=== PATIENT | female | born 1970 | race Caucasian/White ===

== ENCOUNTER 2020-01-19 12:37 | Emergency (ER) | payer BC, SELFPAY ==
[2020-01-19 12:52] VITALS: BP 151/94; PULSE 84; RESP 18; TEMP 36.6; O2SAT 98
--- NOTE | 2020-01-19 12:53 | ED.FEMALEGU ---
HPI - Female Genitourinary General Chief complaint: Urogenital-Female Stated complaint: uti Time Seen by Provider: 01/19/20 12:54 Source: patient Mode of arrival: ambulatory Limitations: no limitations History of Present Illness HPI Narrative: Kemi Rose is a 49 yo female and has urgency, dysuria for 2 days. No N/V, no fever, no back pain Related Data Allergies Allergy/AdvReac Type Severity Reaction Status Date / Time erythromycin base Allergy Mild RASH Verified 01/19/20 12:48 amoxicillin Allergy Unknown Unknown Verified 01/19/20 12:48 ampicillin Allergy Unknown Unknown Verified 01/19/20 12:48 cefuroxime Allergy Unknown Unknown Verified 01/19/20 12:48 cephalexin Allergy Unknown Unknown Verified 01/19/20 12:48 ciprofloxacin Allergy Unknown Unknown Verified 01/19/20 12:48 levonorgestrel-ethinyl Allergy Unknown RASH Verified 01/19/20 12:48 estradiol Penicillins Allergy Unknown Unknown Verified 01/19/20 12:48 procaine Allergy Unknown Unknown Verified 01/19/20 12:48 Sulfa (Sulfonamide Allergy Unknown Unknown Verified 01/19/20 12:48 Antibiotics) Review of Systems Review of Systems: Narrative: CONSTITUTIONAL: Denies fever, chills, sweats. EYES: Denies visual changes, redness, discharge. ENT: Denies rhinorrhea, congestion, sore throat, otalgia. CARDIOVASCULAR: Denies chest pain, palpitations, edema. RESPIRATORY: Denies dyspnea, wheezing, cough GASTROINTESTINAL: Denies abdominal pain, nausea, vomiting, diarrhea. GENITOURINARY: Has dysuria, hematuria, abnormal discharge SKIN: Denies rash or itching. NEUROLOGIC: Denies numbness, or focal weakness. PSYCHIATRIC: Denies anxiety or depression. [facility] Family History Family History (Updated 01/19/20 @ 13:04 by Zoë Baldwin CNP) Mother Family history of malignant neoplasm of cervix Hypertension Acute myocardial infarction Family history of malignant neoplasm of ovary Grandparent Diabetes mellitus Sibling Patient's brother is in good health Acute myocardial infarction Family history of liver disease Other AAA (abdominal aortic aneurysm) Social History Social History Smoking status: Former smoker Smoking end date: 07/20/96 Alcohol intake: current Comments At time of signature, I agree with nursing past medical, surgical, social and family history. There is no relevant family history pertinent to the presenting complaint. Blood pressure is elevated at this visit, recommend follow-up with PCP Exam Narrative: Exam Narrative: GENERAL: This is a well-nourished, well-developed patient, in mild distress. HEAD: normocephalic, atraumatic. EYES: Sclera clear/white. Vision is grossly intact. EARS: External ears normal. Hearing grossly intact. NOSE: External nose normal without nasal discharge, nares without redness, no rhinorrhea. THROAT: Mucous membranes moist, NECK: Neck supple, CARDIOVASCULAR: Regular rate and rhythm without murmurs, gallops, or rubs. RESPIRATORY: Clear to auscultation. Breath sounds equal bilaterally. No wheezes, rales, or rhonchi. GASTROINTESTINAL: Abdomen soft, SKIN: warm, intact with no suspicious lesions or rash, good texture and turgor. NEURO: awake, alert, and oriented to person, place and time. There were no obvious focal neurologic abnormalities. Steady gait EXTREMITIES: Normal range of motion. BACK: Nontender without deformity Course Course Emergency Course: Urine dip positive for both leukocytes and nitrites, blood-due to patient allergy started on Macrobid Patient given instructions to complete antibiotic Vital Signs Vital signs: Vital Signs Temperature 97.8 F 01/19/20 12:52 Pulse Rate 84 01/19/20 12:52 Respiratory Rate 18 01/19/20 12:52 Blood Pressure 151/94 H 01/19/20 12:52 Pulse Oximetry 98 01/19/20 12:52 Temperature 97.8 F 01/19/20 12:52 Pulse Rate 84 01/19/20 12:52 Respiratory Rate 18 01/19/20 12:52 Blood Pressure 1
--- NOTE | 2020-01-29 19:27 | PC.NURSE ---
Pt. called express care expressing concerns about developing hives today while on Macrobid. Pt. reports that she has not taken the antibiotic as prescribed, reports that she has only been taking it once/day instead of prescribed dose of 2x/day. Pt. reports that she also skipped the past two days and began taking Macrobid again today. Pt. reports developing hives today, reports that she took two Benadryl for hives. Spoke to LEAD TINNER Brent. No new antibiotic called in per LEAD TINNER Brent due to patient's many sensitivities to antibiotics. Per LEAD TINNER Brent pt. encouraged to begin taking antibiotic twice per day as prescribed and begin taking Benadryl twice per day. Pt. instructed to seek immediate care for worsening symptoms such as shortness of breath/difficutly breathing/swelling. Pt. verbalizes understanding.
== END 2020-01-19 13:15 | disposition home or self-care (01) ==
PROVIDERS: Emergency Provider Nurse Practitioner; PCP Internal Medicine
DX: N30.01 Acute cystitis with hematuria (principal); E03.9 Hypothyroidism, unspecified; Z87.891 Personal history of nicotine dependence
CPT/HCPCS: 81003; 87077; 87086; 87088; 87186; 99213; G0463

== ENCOUNTER 2020-06-01 13:13 | Emergency (ER) | payer BC, SELFPAY ==
--- NOTE | ~2020-06-01 | XR_ITS ---
XR chest 1V DATE: 06/01/2020 17:29 INDICATION: Dry cough for one week. Fever. Surgery of hypertension. TECHNIQUE: Portable AP chest on 06/01/2020 at 1727 hours COMPARISON: None FINDINGS: There is mild patchy infiltrate or atelectasis in the lower lung zones bilaterally. No pleu ral effusion. Heart size is likely within normal range considering magnification associated with AP projection. Included skeletal structures are unremarkable. IMPRESSION: Mild patchy infiltrate or atelectasis in the lower lung zones Reviewed, dictated and finalized at location A. GENCY SERVICES DISPATCHER
[2020-06-01 13:32] VITALS: BP 145/76; PULSE 101; RESP 18; TEMP 37.8; O2SAT 99
[2020-06-01 14:02] LABS: Add Urine Microscopic? NO; Appearance Urine Clear (Clear); Bilirubin Urine Negative (Negative); Blood Urine Negative (Negative); Color Urine Yellow (Yellow); Glucose Urine UA Negative (Negative); Ketones Urine Negative (Negative); Leukocyte Esterase Ur Negative LEU/UL (Negative); Nitrate Urine Negative (Negative); Protein Urine Negative (Negative); Specific Grav Ur 1.015 (1.001-1.035); Urobilinogen Urine Negative mg/dL (<2.0)
--- NOTE | 2020-06-01 16:49 | ED.GENADULT ---
HPI - General Adult General Chief complaint: Urogenital-Female <Zayra Haque PA-C - Last Filed: 06/01/20 18:13> Stated complaint: bladder infection <Zayra Haque PA-C - Last Filed: 06/01/20 18:13> Time Seen by Provider: 06/01/20 14:47 <Zayra Haque PA-C - Last Filed: 06/01/20 18:13> Source: patient <PEDRO Shields Last Filed: 06/01/20 18:13> Mode of arrival: ambulatory <PEDRO Shields Last Filed: 06/01/20 18:13> Limitations: no limitations <Zayra Haque PA-C - Last Filed: 06/01/20 18:13> History of Present Illness HPI narrative: Patient is here with dry cough x4 days and fever since yesterday, states that her temp at home was up to 101, here she is 100.4. Her cough is nonproductive, she is not short of breath and does not have any chest pain. She was also complaining of some urinary symptoms. She denies any Covid contacts that she knows of. <Zayra Haque PA-C - Last Filed: 06/01/20 18:13> Onset (ago): day(s) <Zayra Haque PA-C - Last Filed: 06/01/20 18:13> Severity: mild <Zayra Haque PA-C - Last Filed: 06/01/20 18:13> Exacerbating factors: none <PEDRO Shields Last Filed: 06/01/20 18:13> Associated symptoms: denies other symptoms <Zayra Haque PA-C - Last Filed: 06/01/20 18:13> Treatments prior to arrival: none <PEDRO Shields Last Filed: 06/01/20 18:13> Related Data Allergies/adverse reactions: Allergies Allergy/AdvReac Type Severity Reaction Status Date / Time erythromycin base Allergy Mild RASH Verified 01/19/20 12:48 amoxicillin Allergy Unknown Unknown Verified 01/19/20 12:48 ampicillin Allergy Unknown Unknown Verified 01/19/20 12:48 cefuroxime Allergy Unknown Unknown Verified 01/19/20 12:48 cephalexin Allergy Unknown Unknown Verified 01/19/20 12:48 ciprofloxacin Allergy Unknown Unknown Verified 01/19/20 12:48 levonorgestrel-ethinyl Allergy Unknown RASH Verified 01/19/20 12:48 estradiol Penicillins Allergy Unknown Unknown Verified 01/19/20 12:48 procaine Allergy Unknown Unknown Verified 01/19/20 12:48 Sulfa (Sulfonamide Allergy Unknown Unknown Verified 01/19/20 12:48 Antibiotics) <Zayra Haque PA-C - Last Filed: 06/01/20 18:13> Review of Systems Review of Systems: All systems reviewed & are unremarkable except as noted in HPI and below <Zayra Haque PA-C - Last Filed: 06/01/20 18:13> [facility] Family History Family History: Family History Mother Family history of malignant neoplasm of cervix Hypertension Acute myocardial infarction Family history of malignant neoplasm of ovary Grandparent Diabetes mellitus Sibling Patient's brother is in good health Acute myocardial infarction Family history of liver disease Other AAA (abdominal aortic aneurysm) <Zayra Haque PA-C - Last Filed: 06/01/20 18:13> Social History Social History: Social History Smoking status: Former smoker Smoking end date: 07/20/96 Alcohol intake: current Gender identity (if verbalized by the patient): Female <Zayra Haque PA-C - Last Filed: 06/01/20 18:13> Exam Const: General: no acute distress and alert <Zayra Haque PA-C - Last Filed: 06/01/20 18:13> Orientation/consciousness: patient oriented x3 <Zayra Haque PA-C - Last Filed: 06/01/20 18:13> HENMT: Head: normal to inspection <Zayra Haque PA-C - Last Filed: 06/01/20 18:13> Eyes: Pupils: Equal, round and reactive pupils present <Zayra Haque PA-C - Last Filed: 06/01/20 18:13> Resp: Effort & Inspection: normal respiratory effort <Zayra Haque PA-C - Last Filed: 06/01/20 18:13> Auscultation: clear to auscultation bilaterally <Zayra Haque PA-C - Last Filed: 06/01/20 18:13> Other: cough with deep inspiration, non-productive <Carloz Shields
[2020-06-01 18:33] VITALS: BP 132/78; PULSE 80; RESP 16; TEMP 36.8; O2SAT 99
[2020-06-02 13:19] LABS: SARS-CoV-2 RNA PCR Positive
== END 2020-06-01 18:34 | disposition home or self-care (01) ==
PROVIDERS: Emergency Medicine; Physician Assistant; Emergency Provider Emergency Medicine; PCP Internal Medicine
DX: U07.1 COVID-19 (principal); Z87.891 Personal history of nicotine dependence
CPT/HCPCS: 71045; 81003; 87635; 99283; C9803; U0003

== ENCOUNTER 2020-09-18 09:18 | Outpatient (CLI) | payer BC, SELFPAY ==
[2020-09-18 10:02] LABS: Alanine Aminotransferase 25 U/L (4-35); Albumin Level 4.4 g/dL (3.5-5.1); Alkaline Phosphatase 86 U/L (38-126); Anion Gap 6 mmol/L (8-16); Aspartate Amino Transferase 28 U/L (14-36); Bilirubin,Total 0.6 mg/dL (0.2-1.3); Blood Urea Nitrogen 15 mg/dL (7-17); Calcium 9.6 mg/dL (8.4-10.2); Carbon Dioxide 30 mmol/L (22-30); Chloride 105 mmol/L (98-107); Cholesterol 230 mg/dL (0-200); Estimated Glomerular Filt Rate > 60; Glucose 112 mg/dL (65-105); HDL Direct 61 mg/dL; Potassium 4.3 mmol/L (3.4-5.0); Sodium 141 mmol/L (137-145); Triglycerides 116 mg/dL (<150)
[2020-09-18 10:15] LABS: LDL Cholesterol Direct 123 mg/dL
== END 2020-09-18 09:19 | disposition home or self-care (01) ==
PROVIDERS: PCP Internal Medicine; Visit Provider Internal Medicine
DX: E78.00 Pure hypercholesterolemia, unspecified (principal); I10 Essential (primary) hypertension; E78.5 Hyperlipidemia, unspecified; E03.9 Hypothyroidism, unspecified
CPT/HCPCS: 36415; 80053; 80061; 84443

== ENCOUNTER 2020-10-08 09:31 | Outpatient (CLI) | payer BC, SELFPAY ==
--- NOTE | ~2020-10-08 | MM_ITS ---
EXAMINATION: MM screening adrian BI w paco HISTORY: Screening mammogram TECHNIQUE: Craniocaudal and mediolateral oblique 3-D tomosynthesis images were obtained and synthetic 2-D images were generated. CAD analysis was submitted and interpreted. COMPARISON: 05/01/2015, 04/04/2014 bilateral digital screening mammogram examinations BREAST PARENCHYMAL COMPOSITION: The breasts are almost entirely fatty. FINDINGS: There is no evidence of suspicious mass, calcification, or architectural distortion to sugg est malignancy in either breast. There has been no suspicious interval change. IMPRESSION: 1. No mammographic evidence of malignancy. 2. Recommend routine screening mammography in one year. BI-RADS Category 1: Negative Reviewed, dictated and finalized at location B.
== END 2020-10-08 09:32 | disposition home or self-care (01) ==
LOC: ANHIMG 09:33
PROVIDERS: PCP Internal Medicine; Visit Provider Internal Medicine
DX: Z12.31 Encounter for screening mammogram for malignant neoplasm of breast (principal)
CPT/HCPCS: 77063; 77067

== ENCOUNTER 2021-02-11 00:44 | Day surgery (SDC) | payer BC, SELFPAY ==
[2021-01-25 14:43] VITALS: BMI 40.4
[2021-02-11 10:16] VITALS: BP 137/91; PULSE 89; RESP 18; TEMP 35.5; O2SAT 100; BMI 41.9
[2021-02-11] MEDS: LACTATED RINGERS 1,000 ML 30 ML IV CONT (10:25)
--- NOTE | 2021-02-11 10:26 | WPDANESEPPF ---
Anes - Initial Pre Proc Eval Procedure: Operation Date: 02/11/21 11:15 Proposed Procedures p Screening Colonoscopy - Phil Elizabeth MD Date/Time: 02/11/21 10:26 Surgeon: Phil Elizabeth MD Pre Op Diagnosis: neoplasm screening Patient Data Age: 50 Gender: F Height: 1.5 m Weight: 94.2 kg Last Vital Signs Temp 35.5 C L 02/11/21 10:16 Pulse 89 02/11/21 10:16 Resp 18 02/11/21 10:16 BP 137/91 H 02/11/21 10:16 Pulse Ox 100 02/11/21 10:16 Allergies Allergy/AdvReac Type Severity Reaction Status Date / Time nitrofurantoin Allergy Severe Hives Verified 02/11/21 10:14 Sulfa (Sulfonamide Allergy Severe Rash Verified 02/11/21 10:14 Antibiotics) amoxicillin Allergy Mild Rash Verified 02/11/21 10:14 ampicillin Allergy Mild Rash Verified 02/11/21 10:14 cefuroxime Allergy Mild Rash Verified 02/11/21 10:14 cephalexin Allergy Mild Rash Verified 02/11/21 10:14 ciprofloxacin Allergy Mild Rash Verified 02/11/21 10:14 erythromycin base Allergy Mild RASH Verified 02/11/21 10:14 levonorgestrel-ethinyl Allergy Mild RASH Verified 02/11/21 10:14 estradiol Penicillins Allergy Mild Rash Verified 02/11/21 10:14 procaine Allergy Mild Rash Verified 02/11/21 10:14 Home Medications Medication Instructions Recorded Confirmed Type amlodipine 5 mg tablet 5 mg PO DAILY #30 tablet 09/18/20 01/25/21 Rx levothyroxine 75 mcg tablet 75 mcg PO DAILY #90 tablet 10/09/20 01/25/21 Rx Patient hx anesthesia problems: none Family hx anesthesia problems: none PMFSH Past Medical History Medical History (Updated 02/11/21 @ 10:27 by Louie Obando MD) Morbid obesity Family History Family History Mother Family history of malignant neoplasm of cervix Hypertension Acute myocardial infarction Family history of malignant neoplasm of ovary Grandparent Diabetes mellitus Sibling Patient's brother is in good health Acute myocardial infarction Family history of liver disease Other AAA (abdominal aortic aneurysm) Social History Social History Smoking packs per day: 2 Smoking cigarettes per day: 40.0 Years smoked: 7 Smoking pack-years: 14.00 Smoking status: Former smoker Tobacco type: cigarettes Smoking end date: 07/20/96 Alcohol intake: current Substance use type: does not use Living arrangements: with family Gender identity (if verbalized by the patient): Female Anes - Eval Final PreProcedure Day of Procedure 02/11/21 10:26 Patient weight: morbidly obese Heart: regular rate and rhythm Lungs: clear to auscultation Airway: Mallampati scale class II Neurological: alert and oriented Last oral intake: >/= 8 hours ASA classification: III Emergent: no Anesthetic plan: proceed Anesthesia type and monitoring: general GIVS and standard monitoring Informed Consent: The patient's anesthetic plan and its attendant risks and benefits were discussed with the patient/family/POA. Questions were solicited and answers provided to the satisfaction of the patient/family/POA.
--- NOTE | 2021-02-11 10:50 | PM.HPGS ---
History of Present Illness History of Present Illness Consent: Risks, benefits, and alternatives have been discussed and questions answered. Patient agrees to proceed with procedure. Chief complaint: neoplasm screening Narrative: Kemi Rose is a 50 year old female here for first screening colonoscopy Review of Systems Constitutional: Constitutional: Denies headache(s) and Denies weakness Eyes: Eyes: Denies blurry vision ENT: Reports Normal hearing present, Denies headache(s) and Denies neck pain Cardiovascular: Cardiovascular: Denies chest pain and Denies dyspnea Respiratory: Respiratory: Denies dyspnea Gastrointestinal: Gastrointestinal: Reports no additional gastrointestinal complaints Genitourinary: Genitourinary: Denies dysuria Musculoskeletal: Musculoskeletal: Denies neck pain Integumentary/Breasts: Skin/Breast: Denies dry skin Neurologic: Reports Normal hearing present, Denies headache(s) and Denies weakness Psychiatric: Psychiatric: Denies anxiety Endocrine: Endocrine: Denies change in body appearance Hematologic/Lymphatic: Hematologic/Lymphatic: Denies easy bleeding Allergic/Immunologic: Allergic/Immunologic: Denies urticaria [facility] Past Medical History Medical History (Updated 02/11/21 @ 10:50 by Phil Elizabeth MD) Colon cancer screening Morbid obesity Family History Family History Mother Family history of malignant neoplasm of cervix Hypertension Acute myocardial infarction Family history of malignant neoplasm of ovary Grandparent Diabetes mellitus Sibling Patient's brother is in good health Acute myocardial infarction Family history of liver disease Other AAA (abdominal aortic aneurysm) Social History Social History Smoking packs per day: 2 Smoking cigarettes per day: 40.0 Years smoked: 7 Smoking pack-years: 14.00 Smoking status: Former smoker Tobacco type: cigarettes Smoking end date: 07/20/96 Alcohol intake: current Substance use type: does not use Living arrangements: with family Gender identity (if verbalized by the patient): Female Meds Home Medications and Allergies Home Medications Medication Instructions Recorded Confirmed Type amlodipine 5 mg tablet 5 mg PO DAILY #30 tablet 09/18/20 01/25/21 Rx levothyroxine 75 mcg tablet 75 mcg PO DAILY #90 tablet 10/09/20 01/25/21 Rx Allergies Allergy/AdvReac Type Severity Reaction Status Date / Time nitrofurantoin Allergy Severe Hives Verified 02/11/21 10:14 Sulfa (Sulfonamide Allergy Severe Rash Verified 02/11/21 10:14 Antibiotics) amoxicillin Allergy Mild Rash Verified 02/11/21 10:14 ampicillin Allergy Mild Rash Verified 02/11/21 10:14 cefuroxime Allergy Mild Rash Verified 02/11/21 10:14 cephalexin Allergy Mild Rash Verified 02/11/21 10:14 ciprofloxacin Allergy Mild Rash Verified 02/11/21 10:14 erythromycin base Allergy Mild RASH Verified 02/11/21 10:14 levonorgestrel-ethinyl Allergy Mild RASH Verified 02/11/21 10:14 estradiol Penicillins Allergy Mild Rash Verified 02/11/21 10:14 procaine Allergy Mild Rash Verified 02/11/21 10:14 Vital Signs Vital Signs - 24 hr 02/11/21 10:16 Temperature 96 F L Pulse Rate 89 Respiratory Rate 18 Blood Pressure 137/91 H Pulse Oximetry 100 Exam Const: General: comfortable and no acute distress HENMT: General nose exam: Normal nares present Eyes: General: appearance normal, both eyes and all related structures Neck: Neck: no JVD Resp: Auscultation: clear to auscultation bilaterally Cardio: Rate: regular rate Rhythm: regular rhythm GI: Inspection: non-distended GI Palp: Yes Soft to palpation Skin: General skin exam: normal color Neuro: General: gait normal Speech: normal speech Extrem: General: normal to inspection Psych: Mental Status: mental status grossly normal Assessment and Pl
[2021-02-11 11:09] VITALS: BP 111/75; PULSE 88; RESP 17; O2SAT 98
[2021-02-11 11:19] VITALS: BP 104/58; PULSE 71; RESP 17; O2SAT 100
[2021-02-11 11:29] VITALS: BP 107/56; PULSE 72; RESP 21; O2SAT 98
== END 2021-02-11 11:45 | disposition home or self-care (01) ==
PROVIDERS: PCP Internal Medicine; Visit Provider Internal Medicine Gastroenterology
PROC: 0DJD8ZZ Inspection of Lower Intestinal Tract, Via Natural or Artificial Opening Endoscopic (ICD-10-PCS; CPT 45378; principal; 2021-02-11 11:15)
DX: Z12.11 Encounter for screening for malignant neoplasm of colon (principal); K64.8 Other hemorrhoids; D12.2 Benign neoplasm of ascending colon; Z87.891 Personal history of nicotine dependence; E03.9 Hypothyroidism, unspecified; E66.01 Morbid (severe) obesity due to excess calories; Z68.41 Body mass index [BMI] 40.0-44.9, adult
CPT/HCPCS: 45380; 88305; J2704; J7120

== ENCOUNTER 2021-09-13 07:53 | Outpatient (CLI) | payer OTHER, SELFPAY ==
[2021-09-13 08:43] LABS: Alanine Aminotransferase 16 U/L (4-35); Albumin Level 4.3 g/dL (3.5-5.1); Alkaline Phosphatase 82 U/L (38-126); Anion Gap 8 mmol/L (8-16); Aspartate Amino Transferase 22 U/L (14-36); Bilirubin,Total 0.4 mg/dL (0.2-1.3); Blood Urea Nitrogen 18 mg/dL (7-17); Calcium 8.8 mg/dL (8.4-10.2); Carbon Dioxide 26 mmol/L (22-30); Chloride 106 mmol/L (98-107); Cholesterol 235 mg/dL (0-200); Estimated Glomerular Filt Rate > 60; Glucose 99 mg/dL (65-110); HDL Direct 51 mg/dL; Potassium 4.2 mmol/L (3.4-5.0); Sodium 140 mmol/L (137-145); Triglycerides 98 mg/dL (<150)
[2021-09-13 08:54] LABS: LDL Cholesterol Direct 126 mg/dL
[2021-09-13 09:00] LABS: Vitamin D 25 Hydroxy 13.9 ng/mL
== END 2021-09-13 07:54 | disposition home or self-care (01) ==
LOC: ANHLAB 07:56
PROVIDERS: PCP Internal Medicine; Visit Provider Internal Medicine
DX: E78.00 Pure hypercholesterolemia, unspecified (principal); E03.9 Hypothyroidism, unspecified; N95.1 Menopausal and female climacteric states
CPT/HCPCS: 36415; 80053; 80061; 82306; 84443

== ENCOUNTER 2022-03-25 07:36 | Outpatient (CLI) | payer OTHER, SELFPAY ==
[2022-03-25 08:34] LABS: Cholesterol 240 mg/dL (0-200); HDL Direct 55 mg/dL; Triglycerides 123 mg/dL (<150)
[2022-03-25 08:45] LABS: LDL Cholesterol Direct 136 mg/dL
[2022-03-25 09:09] LABS: Free T4 Free Thyroxine 0.94 ng/mL (0.78-2.19); Vitamin D 25 Hydroxy 13.3 ng/mL
== END 2022-03-25 07:37 | disposition home or self-care (01) ==
PROVIDERS: PCP Internal Medicine; Visit Provider Nurse Practitioner
DX: E03.9 Hypothyroidism, unspecified (principal); E55.9 Vitamin D deficiency, unspecified; E78.5 Hyperlipidemia, unspecified
CPT/HCPCS: 36415; 80061; 82306; 84439; 84443

== ENCOUNTER 2024-08-29 20:58 | Emergency (ER) | payer OTHER, SELFPAY ==
[2024-08-29 21:23] VITALS: BP 144/92; PULSE 98; RESP 18; TEMP 36.8; O2SAT 97
[2024-08-29 23:11] LABS: Add Urine Microscopic? YES; Appearance Urine Turbid (Clear); Bacteria Urine 4+ /hpf; Bilirubin Urine Negative (Negative); Blood Urine 3+ (Negative); Color Urine Yellow (Yellow); Glucose Urine UA Negative (Negative); Ketones Urine Negative (Negative); Leukocyte Esterase Ur 3+ LEU/UL (Negative); Need Manual Microscopic Reviewed; Nitrate Urine Positive (Negative); Non Pathogenic Casts 0-2; Protein Urine 3+ mg/dL (Negative); RBC Urine 21-50 /hpf (0-2); Specific Grav Ur 1.015 (1.001-1.035); Squamous Epithelial Cell Urine None Seen /hpf (Few); Urobilinogen Urine 0.2 mg/dL (<2.0); WBC Urine >100 /hpf (0-3); pH Urine 5.5 (5.0-9.0)
--- NOTE | 2024-08-30 03:05 | ED_ITS ---
HPI - Female Genitourinary General Chief complaint: Urogenital-Female Stated complaint: UTI sx, back pain Time Seen by Provider: 08/30/24 03:05 Source: patient Mode of arrival: ambulatory Limitations: no limitations History of Present Illness HPI Narrative: (patient was seen in the triage area the since the waiting room due to her already having states for 6 hours but her workup otherwise being complete but without bed space ability in the main ED) Swati presents with concern for a UTI versus kidney infection. She has been having dysuria, right sided back pain, urgency and frequency. No history kidney stones. Previous history kidney infection and states it feels similar. 102 temp at home. Had taken Tylenol prior to arrival. Recently had flu like symptoms. Related Data Home Medications ?Medication ?Instructions ?Recorded ?Confirmed ?Last Taken ?Type cholecalciferol (vitamin D3) 250 250 mcg PO DAILY 10/01/22 10/01/22 Unknown History mcg (10,000 unit) capsule Allergies Allergy/AdvReac Type Severity Reaction Status Date / Time nitrofurantoin Allergy Severe Hives Verified 08/29/24 21:27 Sulfa (Sulfonamide Allergy Severe Rash Verified 09/01/24 09:16 Antibiotics) amoxicillin Allergy Mild Rash Verified 08/29/24 21:27 ampicillin Allergy Mild Rash Verified 08/29/24 21:27 cefuroxime Allergy Mild Rash Verified 08/29/24 21:27 cephalexin Allergy Mild Rash Verified 09/01/24 09:16 ciprofloxacin Allergy Mild Rash Verified 09/01/24 09:17 erythromycin base Allergy Mild RASH Verified 08/29/24 21:27 levonorgestrel-ethinyl Allergy Mild RASH Verified 08/29/24 21:27 estradiol Penicillins Allergy Mild Rash Verified 08/29/24 21:27 procaine Allergy Mild Rash Verified 08/29/24 21:27 [facility] Past Medical History Medical History Hx of pyelonephritis Colon cancer screening Morbid obesity Family History Family History Mother Family history of malignant neoplasm of cervix Hypertension Acute myocardial infarction Family history of malignant neoplasm of ovary Grandparent Diabetes mellitus Sibling Patient's brother is in good health Acute myocardial infarction Family history of liver disease Other AAA (abdominal aortic aneurysm) Social History Social History Smoking packs per day: 2 Smoking cigarettes per day: 40.0 Years smoked: 7 Smoking pack-years: 14.00 Smoking status: Former smoker Tobacco type: cigarettes Smoking end date: 07/20/96 Alcohol intake: current Substance use: never Substance use type: does not use Lack of Transportation: No Lack of Food: Never True Current Housing: I Have Housing Concerned About Future Housing: No Difficulty Paying Gas/Electric Bills: No Difficulty Paying for Meds: No Currently Unemployed: No Education: Associate Degree Difficulty w/ Childcare or Family Care: No Living arrangements: with family Occupation/Education: occupation Additional occupation/education comments: works midnights Gender identity (if verbalized by the patient): Female Exam Narrative: GENERAL: Well-appearing, well-nourished, and in no acute distress. HEAD: Normocephalic, atraumatic. EYES: Non injected, non icteric ENT: Nares clear, no rhinorrhea or epistaxis. NECK: Supple. CHEST: Speaking in full sentences. No respiratory distress. HEART: Regular rate and rhythm. . ABDOMEN: Obese but Soft, nondistended. BACK/: Right sided CVA TTP. L side normal. EXTREMITIES: Normal range of motion. No lower extremity edema. SKIN: Warm, dry, no rash. NEURO: No focal deficits. Alert and oriented x3. PSYCH: Normal mood and affect. Course Vital Signs Vital signs: Vital Signs Temperature 98.2 F 08/29/24 21:23 Pulse Rate 98 08/29/24 21:23 Respiratory Rate 18 08/29/24 21:23 Blood Pressure 144/92 H 08/29/24 21:23 Pulse Oximetry 97 08/29/24 21:23 Oxygen Delivery Room Air 08/29/24 21:23 Temperature 98.2 F 08/29/24 21:23 Pulse Rate 98 08/29/24 21:23 Respiratory Rate 18 08/29/24 21:23 Blood Pressure 144/92 H 08/29/24 21:23 Pulse Oximetry 97 08/29/24 21:23 Oxygen Delivery Room Air 08/29/24 21:23 MDM - Female Genitourinary MDM Narrative Medical decision making narrative: Patient presents with concern for UTI / pyelonephritis. In the emergency department she is afebrile with vital signs that are acceptable although with mild hypertension. UA does show evidence of infection and she has R sided TTP of CVA with report of 102 temp at home in addition to dysuria and urinary urgency and frequency. Previous urine cultures reviewed however this was from January of 2020. At that time, she while E coli was resistant to Bactrim, gentamicin, and ampicillin and indeterminate ampicillin/sulbactam. It was sensitive to amoxicillin, cefepime, ceftriaxone, ciprofloxacin, levofloxacin, ertapenem, imipenem, nitrofurantoin, pip tazo, and tobramycin. However, she lists numerous antibiotic allergies. Allergy list updated to include reactions/side effects she stated for each. Will treat with fosphomycin though not traditionally first line for pyelonephritis, some evidence to support its use. Will await urine culture as well. Also given Rx for pyridium and advised of side effects (verbally and in DC instructions). She verifies understanding and is in agreement. Lab Data Attestation: I reviewed the patient's lab results. Labs: Lab Results 08/29/24 Range/Units 22:28 Urine Color Yellow (Yellow) Urine Appearance Turbid H (Clear) Urine pH 5.5 (5.0-9.0) Ur Specific [place] 1.015 (1.001-1.035) Urine Protein 3+ H (Negative) mg/dL Urine Glucose (UA) Negative (Negative) mg/dL Urine Ketones Negative (Negative) mg/dL Ur Blood (Man) 3+ H (Negative) Urine Nitrate Positive H (Negative) Urine Bilirubin Negative (Negative) Urine Urobilinogen 0.2 (<2.0) mg/dL Add Ur Microanalysis Reviewed Leukocyte Esterase Rfl 3+ H (Negative) GABRIELLE/UL Urine RBC 21-50 H (0-2) /hpf Urine WBC >100 H (0-3) /hpf Ur Squamous Epith Cells None seen (Few) /hpf Urine Bacteria 4+ H /hpf Urine Casts 0-2 Discharge Plan Discharge Clinical Impression: Pyelonephritis, Cystitis Patient Disposition: Home, Self-Care Condition: Stable Instructions: Antibiotic Form, Urinary Tract Infection in Women (DC), Kidney Infection (ED) Additional Instructions: As we discussed, you have evidence of urinary tract infection this did to your kidney becoming a kidney infection also known as pyelonephritis. You are being prescribed an antibiotic that you are not known to be allergic to. It is a one time dose. Pyridium/phenazopyridine can help with the pain you are experiencing from a urinary tract infection. It can discolor your urine and tears (turn them orange). Do not wear contact lenses while taking this medication. Follow-up with primary care physician. Return to the emergency department with any new or worsening symptoms. Patient Language: Amharic Prescriptions: New fosfomycin tromethamine 3 gram packet 3 g PO ONCE Qty: 1 0RF phenazopyridine 100 mg tablet 100 mg PO TID PRN (Reason: pain) 2 Days Qty: 6 0RF Rx Instructions: after meals No Action pravastatin 20 mg tablet 20 mg PO QHS Qty: 30 3RF cholecalciferol (vitamin D3) 250 mcg (10,000 unit) capsule 250 mcg PO DAILY levothyroxine 75 mcg tablet 75 mcg PO DAILY Qty: 90 1RF Follow-up/Referrals: Lilia Sal APRN [Primary Care Provider] - Stand Alone Forms: Work/School Release IP Time of Disposition: 03:09
== END 2024-08-30 03:44 | disposition home or self-care (01) ==
LOC: ANHED 08-30 03:22
PROVIDERS: Student in an Organized Health Care Education/Training Program; Emergency Provider Student in an Organized Health Care Education/Training Program; PCP Nurse Practitioner Family
DX: N12 Tubulo-interstitial nephritis, not specified as acute or chronic (principal); N30.90 Cystitis, unspecified without hematuria; E66.01 Morbid (severe) obesity due to excess calories; Z68.39 Body mass index [BMI] 39.0-39.9, adult; Z87.891 Personal history of nicotine dependence
CPT/HCPCS: 81001; 87086; 87186; 99283

== ENCOUNTER 2024-09-06 07:58 | Outpatient (CLI) | payer OTHER, SELFPAY ==
--- NOTE | ~2024-09-06 | XR_ITS ---
EXAMINATION: XR chest 2V 09/06/2024 08:21 INDICATION: Shortness of breath and wheezing PROCEDURE: 2 view chest COMPARISON: 06/01/2020 FINDINGS: The lungs are clear. The cardiomediastinal silhouette is within normal limits. There are no pleural effusions. There is no pneumothorax suspected. IMPRESSION: 1: NO ACUTE CARDIOPULMONARY DISEASE. Reviewed, dictated and finalized at location B. DRIVER ENGINEER
[2024-09-06 08:25] LABS: Basophils Percent Auto 0.6 % (0.2-1.2); Eosinophils Absolute Auto 0.1 K/mm3 (0-0.3); Hematocrit 39.2 % (37.0-47.0); Hemoglobin 12.7 g/dL (12.0-15.0); Immature Granulocyte Absolute 0.01 K/mm3 (0.00-0.031); Immature Granulocyte Percent A 0.2 % (0-0.5); Lymphocytes Absolute Auto 1.69 K/mm3 (0.9-3.2); Lymphocytes Percent Auto 33.3 % (18.3-44.2); Mean Corpuscular HGB Conc 32.4 g/dl (32-36); Mean Corpuscular Hemoglobin 28.4 pg (26-34); Mean Corpuscular Volume 87.7 fl (80-100); Monocytes Absolute Auto 0.6 K/mm3 (0.1-0.6); Neutrophils Absolute Auto 2.7 K/mm3 (1.3-6.7); Neutrophils Percent Auto 52.9 % (45.5-73.1); Platelet Count Result 226 k/mm3 (150-375); Red Blood Count 4.47 M/mm3 (4.2-5.4); Red Cell Distribution Width 13.2 % (11.5-14.5); White Blood Count 5.1 K/mm3 (4.5-10.0)
[2024-09-06 09:05] LABS: Hemoglobin A1C 5.9 % (<5.7)
[2024-09-06 09:18] LABS: Free T4 Free Thyroxine 0.85 ng/dL (0.78-2.19)
[2024-09-06 09:37] LABS: Alanine Aminotransferase 19 U/L (6-35); Albumin Level 4.1 g/dL (3.5-5.1); Alkaline Phosphatase 80 U/L (38-126); Anion Gap 12 mmol/L (4-12); Aspartate Amino Transferase 20 U/L (14-36); Bilirubin,Total 0.5 mg/dL (0.2-1.3); Blood Urea Nitrogen 15 mg/dL (7-17); Calcium 9.1 mg/dL (8.4-10.2); Carbon Dioxide 25 mmol/L (22-30); Chloride 102 mmol/L (98-107); Cholesterol 196 mg/dL (0-200); Estimated Glomerular Filt Rate > 60; Glucose 92 mg/dL (65-110); HDL Direct 54 mg/dL; Sodium 139 mmol/L (137-145); Triglycerides 70 mg/dL (<150)
[2024-09-06 09:49] LABS: LDL Cholesterol Direct 100 mg/dL
[2024-09-06 09:56] LABS: Free T3 2.57 pg/mL (2.71-6.16)
[2024-09-08 08:53] LABS: Thyroid Peroxidase Antibodies 61 IU/mL (<9)
== END 2024-09-06 07:59 | disposition home or self-care (01) ==
LOC: ANHLAB 08:00
PROVIDERS: PCP Nurse Practitioner Family; Visit Provider Nurse Practitioner Family
DX: R06.02 Shortness of breath (principal); R05.9 Cough, unspecified; I10 Essential (primary) hypertension; E78.00 Pure hypercholesterolemia, unspecified; E03.9 Hypothyroidism, unspecified; E66.01 Morbid (severe) obesity due to excess calories
CPT/HCPCS: 36415; 71046; 80053; 80061; 83036; 84439; 84443; 84481; 85025; 86376

== ENCOUNTER 2024-09-09 22:52 | Emergency (ER) | payer OTHER, SELFPAY ==
--- NOTE | ~2024-09-09 | CT_ITS ---
EXAMINATION: CT abdomen pelvis w con DATE: 09/10/2024 03:11 INDICATION: One month of constipation TECHNIQUE: Computed tomography (CT) of the abdomen and pelvis was performed with 100 mL Omnipaque-350 intravenous contrast. Automated exposure control and iterative reconstruction technique were employe d. The dose-length product was 1171.22 mGy-cm. COMPARISON: None FINDINGS: Lung bases are clear. Heart size is normal. No pericardial or pleural effusion. Liver, gallbladder, s pleen, pancreas, bilateral adrenal glands and left kidney are normal. Small geographic regions of dec reased cortical enhancement in the right kidney with urothelial enhancement the renal pelvis and mini mal perinephric stranding consistent with ascending urinary tract infection and pyelonephritis. There is urothelial enhancement at the partially collapsed kidney lower minimal surrounding stranding cons istent with cystitis. The uterus is not identified and has likely been surgically resected. Bilateral adnexa are unremarkable. Bowels including appendix are normal. No free intraperitoneal gas or fluid. No pathologically enlarged abdominal or pelvic lymphadenopathy. Mild scattered degenerative skeletal changes in the visualized spine and pelvis. IMPRESSION: 1. Ascending urinary tract infection with cystitis and right sided pyelonephritis. Reviewed, dictated and finalized at location A. [facility] IMPRESSION: 1. Ascending urinary tract infection with cystitis and right sided pyelonephrit is.
[2024-09-09 23:08] VITALS: BP 139/73; PULSE 121; RESP 20; TEMP 39.3; O2SAT 96
[2024-09-10 02:49] LABS: Basophils Percent Auto 0.2 % (0.2-1.2); Hematocrit 36.2 % (37.0-47.0); Immature Granulocyte Absolute 0.05 K/mm3 (0.00-0.031); Immature Granulocyte Percent A 0.4 % (0-0.5); Lymphocytes Absolute Auto 1.45 K/mm3 (0.9-3.2); Lymphocytes Percent Auto 11.4 % (18.3-44.2); Mean Corpuscular HGB Conc 33.1 g/dl (32-36); Mean Corpuscular Hemoglobin 28.1 pg (26-34); Mean Corpuscular Volume 84.8 fl (80-100); Mean Platelet Volume 8.9 fl (7.4-10.4); Monocytes Absolute Auto 0.9 K/mm3 (0.1-0.6); Monocytes Percent Auto 7.1 % (2.6-8.5); Neutrophils Absolute Auto 10.3 K/mm3 (1.3-6.7); Neutrophils Percent Auto 80.9 % (45.5-73.1); Platelet Count Result 193 k/mm3 (150-375); Red Blood Count 4.27 M/mm3 (4.2-5.4); Red Cell Distribution Width 13.2 % (11.5-14.5); White Blood Count 12.7 K/mm3 (4.5-10.0)
[2024-09-10 02:51] LABS: Add Urine Microscopic? YES; Appearance Urine Turbid (Clear); Bacteria Urine 2+ /hpf; Bilirubin Urine Negative (Negative); Blood Urine 2+ (Negative); Color Urine Dark Yellow (Yellow); Glucose Urine UA Negative (Negative); Ketones Urine 2+ mg/dL (Negative); Leukocyte Esterase Ur 3+ LEU/UL (Negative); Nitrate Urine Positive (Negative); Non Pathogenic Casts 0-2; Protein Urine 2+ mg/dL (Negative); Specific Grav Ur 1.016 (1.001-1.035); Squamous Epithelial Cell Urine None Seen /hpf (Few); WBC Urine >100 /hpf (0-3)
[2024-09-10] MEDS: SODIUM CHLORIDE 0.9% IV 1,000 ML 999 ML IV CONT (02:53)
[2024-09-10] MEDS: ACETAMINOPHEN 500 MG TABLET 1000 MG PO (02:53)
[2024-09-10] MEDS: ONDANSETRON INJ 4 MG/2 ML VIAL IV PUSH (02:53)
[2024-09-10 02:57] LABS: Alanine Aminotransferase 19 U/L (6-35); Alkaline Phosphatase 79 U/L (38-126); Anion Gap 11 mmol/L (4-12); Aspartate Amino Transferase 22 U/L (14-36); Bilirubin,Total 1.1 mg/dL (0.2-1.3); Blood Urea Nitrogen 11 mg/dL (7-17); Calcium 9.2 mg/dL (8.4-10.2); Carbon Dioxide 24 mmol/L (22-30); Chloride 102 mmol/L (98-107); Estimated CRCL calculation 60 ml/min; Estimated Glomerular Filt Rate > 60; Glucose 127 mg/dL (65-110); Lipase 49 U/L (23-300); Magnesium 2.2 mg/dL (1.6-2.3); Potassium 3.5 mmol/L (3.4-5.0); Sodium 137 mmol/L (137-145)
[2024-09-10 03:24] LABS: Influenza A QL RT-PCR Positive (Negative); Influenza B QL RT-PCR Negative (Negative); RSV RNA, RT-PCR Negative (Negative); SARS-CoV-2 RNA PCR Negative (Negative)
--- NOTE | 2024-09-10 03:42 | ED.ABDPAIN ---
HPI - Abdominal Pain General Chief Complaint: Abdominal Pain Stated Complaint: uti Time Seen by Provider: 09/10/24 01:46 History of Present Illness HPI narrative: Patient is a 53-year-old female who presents to the emergency department this evening complaining of constipation for the past month. Patient states that she has been having recurrent upper respiratory symptoms and has been on and off of steroids for the past month which tends to constipate her. Patient admits that she has tried multiple [id number] medications for this constipation with no improvement. Patient also states that within the past few days she started to have some dysuria and symptoms of a urinary tract infection. Patient states that she has a long list of allergies to almost all of the medications used to treat UTIs and she states that over a week ago she was seen here for UTI and was prescribed a 1 time pill which cleared her symptoms. Patient is unsure of what the name of the medication is but that it starts within F, likely fosfomycin. Admits to nausea but denies any vomiting episodes. Admits to fevers and chills as well. Denies any sick contacts exposure. No additional symptoms or concerns at this time. Related Data Home Medications ?Medication ?Instructions ?Recorded ?Confirmed ?Last Taken ?Type cholecalciferol (vitamin D3) 250 250 mcg PO DAILY 10/01/22 09/05/24 Unknown History mcg (10,000 unit) capsule Allergies Allergy/AdvReac Type Severity Reaction Status Date / Time nitrofurantoin Allergy Severe Hives Verified 09/09/24 23:08 Sulfa (Sulfonamide Allergy Severe Anaphylaxis Verified 09/09/24 23:08 Antibiotics) amoxicillin Allergy Mild Rash Verified 09/09/24 23:08 ampicillin Allergy Mild Rash Verified 09/09/24 23:08 cefuroxime Allergy Mild Rash Verified 09/09/24 23:08 cephalexin Allergy Mild Rash Verified 09/09/24 23:08 ciprofloxacin Allergy Mild Rash Verified 09/09/24 23:08 erythromycin base Allergy Mild RASH Verified 09/09/24 23:08 levonorgestrel-ethinyl Allergy Mild RASH Verified 09/09/24 23:08 estradiol Penicillins Allergy Mild Rash Verified 09/09/24 23:08 procaine Allergy Mild Rash Verified 09/09/24 23:08 Review of Systems Review of Systems: All systems are reviewed and are negative unless stated otherwise in the HPI. [facility] Past Medical History Medical History Hx of pyelonephritis Colon cancer screening Morbid obesity Family History Family History Mother Family history of malignant neoplasm of cervix Hypertension Acute myocardial infarction Family history of malignant neoplasm of ovary Grandparent Diabetes mellitus Sibling Patient's brother is in good health Acute myocardial infarction Family history of liver disease Other AAA (abdominal aortic aneurysm) Social History Social History Smoking packs per day: 2 Smoking cigarettes per day: 40.0 Years smoked: 7 Smoking pack-years: 14.00 Smoking status: Former smoker Tobacco type: cigarettes Smoking end date: 07/20/96 Alcohol intake: current Substance use: never Substance use type: does not use Do You Feel Safe in your Home?: Yes Lack of Transportation: No Lack of Food: Never True Current Housing: I Have Housing Concerned About Future Housing: No Difficulty Paying Gas/Electric Bills: No Difficulty Paying for Meds: No Currently Unemployed: No Education: High School Diploma/GED Difficulty w/ Childcare or Family Care: No Living arrangements: with family Occupation/Education: occupation Additional occupation/education comments: works midnights Gender identity (if verbalized by the patient): Female Spiritual care concerns: No Agree to blood products: Yes Exam Narrative: General: Alert, awake, febrile, in no acute distress. HEENT: PERRL, no rhinorrhea, no post nasal drip, oropharynx clear. Neck: Trachea midline, no JVD, no lymphadenopathy. Cardiovascular: Regular rate and rhythm, no murmurs, rubs or gallops, no peripheral edema. Respiratory: Clear to auscultation bilaterally, no tachypnea, no wheezing, no rhonchi, no rubs, no respiratory distress. Abdomen: Soft, nontender, nondistended, no rebound, no guarding, no peritoneal signs. Musculoskeletal: No joint swelling or deformity, normal muscle tone. Skin: No rashes or petechia, no signs of infection. Psychiatric: Alert and oriented, normal behavior and judgment for situation. Neurological: Alert and oriented to person, place, and time. Follows all commands. No focal deficits, speech is clear and fluent. Course Vital Signs Vital signs: Vital Signs Temperature 102.8 F H 09/09/24 23:08 Pulse Rate 121 H 09/09/24 23:08 Respiratory Rate 20 09/09/24 23:08 Blood Pressure 139/73 09/09/24 23:08 Pulse Oximetry 96 09/09/24 23:08 Oxygen Delivery Room Air 09/09/24 23:08 Temperature 98.4 F 09/10/24 05:25 Pulse Rate 87 09/10/24 05:25 Respiratory Rate 16 09/10/24 05:25 Blood Pressure 128/64 09/10/24 05:38 Pulse Oximetry 96 09/10/24 05:25 Oxygen Delivery Room Air 09/09/24 23:08 MDM - Abdominal Pain MDM Narrative Medical decision making narrative: The patient was evaluated by myself in the emergency department. History is obtained from patient who is an independent historian and physical exam was performed. External medical records were reviewed at this time. IV was established and pertinent tests were ordered. Patient was administered 1 L IV fluid bolus with normal saline, 1 g of oral Tylenol for fever, 4 mg of IV Zofran for nausea. Laboratory results obtained revealing leukocytosis of 12.7, otherwise unremarkable. Urinalysis revealed urinary tract infection with 2+ ketones, positive nitrites, 2+ blood, 3+ leuk esterases, greater than 100 white blood cells and 2+ bacteria. Viral swabs did result up with a positive influenza A. At this time, patient was administered an additional 1 L IV fluid bolus with normal saline. Imaging studies obtained included CT abdomen pelvis with IV contrast which was independently interpreted by me revealing diffuse well bladder thickening with adjacent stranding which is favored to relate cystitis, findings within the right kidney which could relate to ascending urinary tract infection/pyelonephritis, no evidence of bowel obstruction. Patient denies any back pain or flank pain. Patient was informed of these findings at bedside. On repeat assessment she is resting comfortably asleep and denying any pain. She was informed that she will be sent home on 4 different medications to help with her constipation and fosfomycin 3 g p.o. once. Patient was informed that she needs to have her urine we checked within the next 2-3 days by her primary care physician to make sure that she cleared this urinary tract infection even if her symptoms resolve as she may need additional antibiotics to fully clear her UTI and prevent worsening pyelonephritis/kidney infection and patient is agreeable with this plan. Patient was informed that fosfomycin is not 1st line therapy for UTI/cystitis/pyelonephritis, however, given her extensive list of medication and antibiotic allergies this limits us to only fosfomycin. Differential diagnosis considerations include constipation, bowel obstruction, diverticulitis, pyelonephritis. Comorbidities impacting this visit include recent steroid use precipitating constipation. I have evaluated and discussed social determinants of health with the patient that could potentially impact subsequent diagnosis and treatment plans. On repeat assessment of the patient, reevaluation revealed that the patient is doing well and is in no acute distress. Patient symptoms have improved since she arrived to our emergency department. Repeat vital signs were all reviewed and noted to be stable with repeat heart rate of 87, temperature of 98.4? F and blood pressure of 128/64 mmHg. Differential diagnosis and treatment plan were discussed with the patient at bedside. Patient agrees with discussion and after shared medical decision making agrees with discharge. All questions were answered to the patient's satisfaction. Patient will follow up with her PCP in 3 days. Script for MiraLax, Colace, senna and Mag citrate were sent to patient's pharmacy along with fosfomycin 3 g for her UTI. Patient was provided with strict return precautions and instructed to return to the emergency department if any new or worsening symptoms develop. The patient was discharged in stable condition. Lab Data 09/10/24 02:40 09/10/24 02:40 Labs: Lab Results 09/10/24 Range/Units 02:40 WBC 12.7 H (4.5-10.0) K/mm3 RBC 4.27 (4.2-5.4) M/mm3 Hgb 12.0 (12.0-15.0) g/dL Hct 36.2 L (37.0-47.0) % MCV 84.8 (80-100) fl MCH 28.1 (26-34) pg MCHC 33.1 (32-36) g/dl RDW 13.2 (11.5-14.5) % Plt Count 193 (150-375) k/mm3 MPV 8.9 (7.4-10.4) fl Immature Gran % (Auto) 0.4 (0-0.5) % Neut % (Auto) 80.9 H (45.5-73.1) % Lymph % (Auto) 11.4 L (18.3-44.2) % Dickenson % (Auto) 7.1 (2.6-8.5) % Eos % (Auto) 0.0 (0-4.4) % Baso % (Auto) 0.2 (0.2-1.2) % Lymph # (Auto) 1.45 (0.9-3.2) K/mm3 Dickenson # (Auto) 0.9 H (0.1-0.6) K/mm3 Eos # (Auto) 0.0 (0-0.3) K/mm3 Baso # (Auto) 0.0 (0.0-0.1) K/mm3 Abs Immat Gran (auto) 0.05 H (0.00-0.031) K/mm3 Absolute Neuts (auto) 10.3 H (1.3-6.7) K/mm3 Absolute Nucleated RBC 0.000 (0.0-0.012) K/mm3 Nucleated RBC % 0.0 (0.0-0.2) % Sodium 137 (137-145) mmol/L Potassium 3.5 (3.4-5.0) mmol/L Chloride 102 (98-107) mmol/L Carbon Dioxide 24 (22-30) mmol/L Anion Gap 11 (4-12) mmol/L BUN 11 (7-17) mg/dL Creatinine 0.94 (0.7-1.0) mg/dL Estim Creat Clear Calc 60 ml/min Estimated GFR > 60 (59 - ) Glucose 127 H (65-110) mg/dL Calcium 9.2 (8.4-10.2) mg/dL Magnesium 2.2 (1.6-2.3) mg/dL Total Bilirubin 1.1 (0.2-1.3) mg/dL AST 22 (14-36) U/L ALT 19 (6-35) U/L Alkaline Phosphatase 79 (38-126) U/L Total Protein 8.0 (6.3-8.2) g/dL Albumin 4.0 (3.5-5.1) g/dL Lipase 49 (23-300) U/L Urine Color Dark yellow (Yellow) Urine Appearance Turbid H (Clear) Urine pH 6.0 (5.0-9.0) Ur Specific [place] 1.016 (1.001-1.035) Urine Protein 2+ H (Negative) mg/dL Urine Glucose (UA) Negative (Negative) mg/dL Urine Ketones 2+ H (Negative) mg/dL Ur Blood (Man) 2+ H (Negative) Urine Nitrate Positive H (Negative) Urine Bilirubin Negative (Negative) Urine Urobilinogen 1.0 (<2.0) mg/dL Leukocyte Esterase Rfl 3+ H (Negative) GABRIELLE/UL Urine RBC 11-20 H (0-2) /hpf Urine WBC >100 H (0-3) /hpf Ur Squamous Epith Cells None seen (Few) /hpf Urine Bacteria 2+ H /hpf Urine Casts 0-2 Influenza A (RT-PCR) Positive A (Negative) Influenza B (RT-PCR) Negative (Negative) RSV (RT-PCR) Negative (Negative) SARS-CoV-2 RNA (RT-PCR) Negative (Negative) Discharge Plan Discharge Clinical Impression: UTI (urinary tract infection), Influenza A, Constipation Patient Disposition: Home, Self-Care Condition: Improved Instructions: Antibiotic Form, Constipation (DC), Urinary Tract Infection in Women (DC), Influenza (ED) Additional Instructions: Please use the prescribed medications as instructed to help with your constipation. You will use the MiraLax starting today 17 g every hour for up to 5 hours until you have a bowel movement. In addition to this you will use the magnesium citrate twice a day, Colace twice a day, and the senna twice a day until your constipation resolves. Make sure you take the fosfomycin as instructed for UTI/pyelonephritis. You will need to follow-up with your family doctor within 2-3 days to have your urine recheck to make sure that you cleared the UTI as you may need additional antibiotics. Return to the emergency department if any new or worsening symptoms develop. Patient Language: Cymraes Prescriptions: New polyethylene glycol 3350 [Miralax] 17 gram/dose powder 17 g PO DAILY Qty: 510 0RF Rx Instructions: Use 17 g every hour for up to 5 hours until you have a bowel movement. docusate sodium [Colace] 100 mg capsule 100 mg PO BID Qty: 20 0RF sennosides [senna] 8.6 mg tablet 17.2 mg PO BID Qty: 20 0RF magnesium citrate Solution 150 ml PO BID PRN (Reason: constipation) Qty: 296 0RF fosfomycin tromethamine 3 gram packet 3 g PO ONCE Qty: 1 0RF No Action cholecalciferol (vitamin D3) 250 mcg (10,000 unit) capsule 250 mcg PO DAILY prednisone 20 mg tablet 40 mg PO DAILY Qty: 10 0RF Follow-up/Referrals: Lilia Sal APRN [Primary Care Provider] - 3 Days Time of Disposition: 05:13
[2024-09-10 04:39] VITALS: BP 132/78; PULSE 116; RESP 18; O2SAT 98
[2024-09-10 05:25] VITALS: BP 99/60; PULSE 87; RESP 16; TEMP 36.9; O2SAT 96
[2024-09-10 05:38] VITALS: BP 128/64
[2024-09-10 06:03] VITALS: BP 128/64; PULSE 87; RESP 16; O2SAT 96
== END 2024-09-10 06:07 | disposition home or self-care (01) ==
PROVIDERS: Emergency Provider Emergency Medicine; PCP Nurse Practitioner Family
DX: J10.1 Influenza due to other identified influenza virus with other respiratory manifestations (principal); N39.0 Urinary tract infection, site not specified; K59.00 Constipation, unspecified; Z20.822 Contact with and (suspected) exposure to COVID-19; E66.01 Morbid (severe) obesity due to excess calories; Z68.39 Body mass index [BMI] 39.0-39.9, adult; Z87.891 Personal history of nicotine dependence
CPT/HCPCS: 36415; 74177; 80053; 81001; 83690; 83735; 85025; 87077; 87086; 87186; 87637; 96361; 96374; 99284; A9270; J2405; J7030; Q9967

== ENCOUNTER 2024-09-15 09:54 | Outpatient (CLI) | payer OTHER, SELFPAY ==
[2024-09-15 10:33] LABS: Add Urine Microscopic? YES; Appearance Urine Cloudy (Clear); Bacteria Urine 1+ /hpf; Bilirubin Urine Negative (Negative); Blood Urine Trace (Negative); Color Urine Yellow (Yellow); Glucose Urine UA Negative (Negative); Ketones Urine Negative (Negative); Leukocyte Esterase Ur 3+ LEU/UL (Negative); Nitrate Urine Negative (Negative); Non Pathogenic Casts 0-2; Protein Urine Negative (Negative); RBC Urine 0-2 /hpf (0-2); Specific Grav Ur 1.008 (1.001-1.035); Squamous Epithelial Cell Urine Occasional /hpf (Few); Urobilinogen Urine 0.2 mg/dL (<2.0); WBC Urine >100 /hpf (0-3); pH Urine 6.5 (5.0-9.0)
== END 2024-09-15 09:55 | disposition home or self-care (01) ==
LOC: ANHLAB 09:55
PROVIDERS: PCP Nurse Practitioner Family; Visit Provider Nurse Practitioner Family
DX: N39.0 Urinary tract infection, site not specified (principal)
CPT/HCPCS: 81001; 87077; 87086; 87186

== ENCOUNTER 2025-03-28 15:00 | Outpatient (CLI) | payer OTHER, SELFPAY ==
--- NOTE | ~2025-03-28 | MM_ITS ---
EXAMINATION: MM screening adrian BI w paco HISTORY: Screening TECHNIQUE: Craniocaudal and mediolateral oblique 3-D tomosynthesis images were obtained and synthetic 2-D images were generated. CAD analysis was submitted and interpreted. COMPARISON: Comparison to multiple prior studies sequentially, with oldest reviewed study dated , 04/04/2014 BREAST PARENCHYMAL COMPOSITION: The breasts are almost entirely fatty. FINDINGS: There is no evidence of suspicious mass, calcification, or architectural distortion to suggest malignancy in either breast. IMPRESSION: 1. No mammographic evidence of malignancy. 2. Recommend routine screening mammography in one year. BI-RADS Category 1: Negative Reviewed, dictated and finalized at location B.
== END 2025-03-28 15:01 | disposition home or self-care (01) ==
LOC: ANHFOHIMG 15:02
PROVIDERS: PCP Nurse Practitioner Family; Visit Provider Nurse Practitioner Family
DX: Z12.31 Encounter for screening mammogram for malignant neoplasm of breast (principal)
CPT/HCPCS: 77063; 77067

== ENCOUNTER 2025-03-30 08:40 | Outpatient (CLI) | payer OTHER, SELFPAY ==
[2025-03-30 09:16] LABS: Hemoglobin A1C 5.7 % (<5.7)
[2025-03-30 09:55] LABS: Free T4 Free Thyroxine 0.90 ng/dL (0.78-2.19)
[2025-03-30 10:00] LABS: Thyroid Stimulating Hormone 5.220 uIU/mL (0.465-4.680)
== END 2025-03-30 08:41 | disposition home or self-care (01) ==
LOC: ANHLAB 08:41
PROVIDERS: PCP Nurse Practitioner Family; Visit Provider Nurse Practitioner Family
DX: E03.9 Hypothyroidism, unspecified (principal); E78.00 Pure hypercholesterolemia, unspecified; E55.9 Vitamin D deficiency, unspecified
CPT/HCPCS: 36415; 82306; 83036; 84439; 84443